=== PATIENT | male | born 1980 | race Caucasian/White ===

== ENCOUNTER 2016-10-20 17:18 | Emergency (ER) | payer SELFPAY ==
[~2016-10-20] VITALS: Ht 167.6 cm; Wt 70.4 kg
[2016-10-20 17:19] VITALS: BP 147/93
[2016-10-20] MEDS ORDERED: AZITHROMYCIN 500 MG TABLET PO ONE (18:00)
[2016-10-20] MEDS ORDERED: CEFTRIAXONE 250 MG IM ONE (18:00)
[2016-10-20] MEDS ORDERED: LIDOCAINE 1%, 20ML SQ ONE (18:00)
[2016-10-20] MEDS ORDERED: AZITHROMYCIN 250 MG TABLET ONE (18:16)
[2016-10-20] MEDS ORDERED: LIDOCAINE 1%, 20ML ONE ×2 (18:16→18:17)
[2016-10-20] MEDS ORDERED: CEFTRIAXONE 250 MG ONE (18:16)
[2016-10-20] MEDS ORDERED: LIDOCAINE GEL 2%, 5ML ONE (18:24)
[2016-10-20] MEDS ORDERED: LIDOCAINE 2% VISCOUS 15 ML UDC MM ONE (18:30)
== END 2016-10-20 20:02 | disposition left against medical advice (07) ==
LOC: ED 19:55
DX: K64.5 Perianal venous thrombosis (principal); F12.10 Cannabis abuse, uncomplicated; F15.10 Other stimulant abuse, uncomplicated
CPT/HCPCS: 81001; 96372; 99283; J0696

== ENCOUNTER 2017-07-03 18:13 | Emergency (ER) | payer SELFPAY ==
[~2017-07-03] VITALS: Ht 165.1 cm; Wt 75.7 kg
[2017-07-03 18:30] VITALS: BP 156/96
[2017-07-03] MEDS ORDERED: HYDROcodone/APAP 5/325 TABLET ONE (19:37)
[2017-07-03] MEDS ORDERED: HYDROcodone/APAP 5/325 TABLET PO ONE (20:00)
== END 2017-07-03 18:40 | disposition home or self-care (01) ==
LOC: ED 18:34
DX: K04.7 Periapical abscess without sinus (principal); K02.9 Dental caries, unspecified
CPT/HCPCS: 99283

== ENCOUNTER 2017-10-05 02:21 | Emergency (ER) | payer OTHER ==
[~2017-10-05] VITALS: Ht 170.2 cm; Wt 72.1 kg
[2017-10-05 02:23] VITALS: BP 139/76
== END 2017-10-05 03:14 | disposition home or self-care (01) ==
LOC: ED 03:13
DX: J34.0 Abscess, furuncle and carbuncle of nose (principal); F17.200 Nicotine dependence, unspecified, uncomplicated
CPT/HCPCS: 99283

== ENCOUNTER 2018-08-09 12:37 | Emergency (ER) | payer SELFPAY ==
--- NOTE | 2018-08-09 13:07 | NUR ---
NA X 1 @ 1306
== END 2018-08-09 13:43 | disposition left against medical advice (07) ==
LOC: ED 13:37
DX: Z53.21 Procedure and treatment not carried out due to patient leaving prior to being seen by health care provider (principal)